=== PATIENT | female | born 1970 | race Caucasian/White ===

== ENCOUNTER → 2018-07-16 08:46 | Outpatient (CLI) | payer OTHER, SELFPAY ==
--- NOTE | 2018-07-16 | DI.MG.S_ITS ---
BILATERAL DIGITAL SCREENING MAMMOGRAM 3D/2D WITH CAD: 07/16/2018 CLINICAL: Routine screening. Comparison is made to exams dated: 01/19/2015 mammogram and 01/13/2015 mammogram - [facility]. The tissue of both breasts is heterogeneously dense. This may lower the sensitivity of mammography. Current study was also evaluated with a Computer Aided Detection (CAD) system. There are benign calcifications in the left breast. No significant masses, calcifications, or other findings are seen in either breast. IMPRESSION: There is no mammographic evidence of malignancy. A 1 year screening mammogram is recommended.(07/17/2019) This exam was interpreted at Station ID: [id number]. NOTE: For mammograms, a report in lay terms will be sent to the patient. Approximately 15% of breast malignancies will not be visualized mammographically. In the management of a palpable breast mass, a negative mammogram must not discourage biopsy of a clinically suspicious lesion. Electronically Signed By: Jasbir augustine/cata:07/16/2018 23:53:47 copy to: CINDY FISCHER letter sent: Normal Exam ACR BI-RADS Category 2: Benign Finding(s) 3342F
== END ==
PROVIDERS: Family Provider Specialist; PCP Family Medicine; Visit Provider Family Medicine
DX: Z12.31 Encounter for screening mammogram for malignant neoplasm of breast (principal)
CPT/HCPCS: 77063; 77067

== ENCOUNTER → 2019-07-25 08:40 | Outpatient (CLI) | payer OTHER, SELFPAY ==
--- NOTE | 2019-07-25 | DI.MG.S_ITS ---
BILATERAL DIGITAL SCREENING MAMMOGRAM 3D/2D WITH CAD: 07/25/2019 CLINICAL: Routine screening. Comparison is made to exams dated: 07/16/2018 mammogram, 01/19/2015 mammogram, and 01/13/2015 mammogram - [facility]. There are scattered fibroglandular elements in both breasts. Current study was also evaluated with a Computer Aided Detection (CAD) system. There are a benign mass and calcification in the right breast. There also are benign calcifications in the left breast. No significant masses, calcifications, or other findings are seen in either breast. There has been no significant interval change. IMPRESSION: There is no mammographic evidence of malignancy. A 1 year screening mammogram is recommended. This exam was interpreted at Station ID: [id number]. NOTE: For mammograms, a report in lay terms will be sent to the patient. Approximately 15% of breast malignancies will not be visualized mammographically. In the management of a palpable breast mass, a negative mammogram must not discourage biopsy of a clinically suspicious lesion. Electronically Signed By: Aung pérez/cata:07/27/2019 07:54:34 copy to: CINDY FISCHER letter sent: Normal Exam ACR BI-RADS Category 2: Benign Finding(s) 3342F
== END ==
PROVIDERS: Visit Provider Specialist
DX: Z12.31 Encounter for screening mammogram for malignant neoplasm of breast (principal)
CPT/HCPCS: 77063; 77067

== ENCOUNTER → 2020-01-13 14:44 | Outpatient (CLI) | payer OTHER, SELFPAY ==
--- NOTE | 2020-01-13 14:46 | DI.US.S_ITS ---
LIMITED ULTRASOUND OF RIGHT BREAST: 01/13/2020 CLINICAL: Palpable right breast lump. Comparison is made to exams dated: 07/25/2019 mammogram, 07/16/2018 mammogram, and 01/19/2015 mammogram - [facility]. Color flow and real-time ultrasound of the right breast 5 o'clock region were performed on the areas of interest. There is a 0.9 cm x 0.9 cm x 1 cm round cyst in the right breast at 5 o'clock middle depth. This round cyst is hypoechoic with a well-defined boundary, internal echoes, and posterior acoustic enhancement. This correlates as palpated. Color flow imaging demonstrates that there is no vascularity present. There also is a 0.7 cm x 0.5 cm x 0.7 cm oval mass with a circumscribed margin in the right breast at 5 o'clock middle depth. This oval mass is isoechoic with a well-defined boundary. This correlates as palpated and with mammography findings. Color flow imaging demonstrates that there is no vascularity present. IMPRESSION: PROBABLY BENIGN The 0.9 cm x 0.9 cm x 1 cm round cyst in the right breast at 5 o'clock middle depth is consistent with a complicated cyst and is probably benign. A follow-up ultrasound in 6 months is recommended. The 0.7 cm x 0.5 cm x 0.7 cm oval mass in the right breast at 5 o'clock middle depth likely represents fat necrosis and is probably benign. A follow-up ultrasound in 6 months is recommended. A follow-up ultrasound in 6 months is recommended to demonstrate stability. This exam was interpreted at Station ID: [id number]. Electronically Signed By: Mack lugo/cata:01/13/2020 16:58:46 copy to: CINDY FISCHER letter sent: Followup Recommended Ultrasound BI-RADS: 3 Probably benign
--- NOTE | 2020-01-13 14:46 | DI.MG.S_ITS ---
UNILATERAL RIGHT DIGITAL DIAGNOSTIC MAMMOGRAM 3D/2D: 01/13/2020 CLINICAL: Right breast lump. Comparison is made to exams dated: 07/25/2019 mammogram, 07/16/2018 mammogram, and 01/19/2015 mammogram - [facility]. There are scattered fibroglandular elements in right breast. There is a 1.1 cm round fat containing fat necrosis with an indistinct margin and punctate calcifications in the right breast at 3 o'clock posterior depth. This is not significantly changed and correlates as palpated. There is a post-surgical scar associated with the fat necrosis. No other significant masses or calcifications are seen in the breast. IMPRESSION: INCOMPLETE: NEEDS ADDITIONAL IMAGING EVALUATION The 1.1 cm round fat containing fat necrosis in the right breast is indeterminate. An ultrasound is recommended. This exam was interpreted at Station ID: [id number]. NOTE: For mammograms, a report in lay terms will be sent to the patient. Approximately 15% of breast malignancies will not be visualized mammographically. In the management of a palpable breast mass, a negative mammogram must not discourage biopsy of a clinically suspicious lesion. Electronically Signed By: Mack lugo/cata:01/13/2020 15:53:19 copy to: CINDY FISCHER ACR BI-RADS Category 0: Incomplete 3340F
== END ==
PROVIDERS: PCP Family Medicine; Referring Provider Specialist; Visit Provider Specialist
DX: R92.8 Other abnormal and inconclusive findings on diagnostic imaging of breast (principal); N60.01 Solitary cyst of right breast; N63.14 Unspecified lump in the right breast, lower inner quadrant; N64.1 Fat necrosis of breast
CPT/HCPCS: 76642; 77065; G0279

== ENCOUNTER → 2020-07-18 13:05 | Outpatient (CLI) | payer OTHER, SELFPAY ==
--- NOTE | 2020-07-18 13:06 | DI.US.S_ITS ---
LIMITED ULTRASOUND OF RIGHT BREAST: 07/18/2020 CLINICAL: Patient returns for a 6 month follow up of the right breast. No prior exams were available for comparison. Ultrasound of the right breast 4-5 o'clock region was performed on the area of interest. There is a stable benign area of fat necrosis in the right breast at 5 o'clock. IMPRESSION: BENIGN Fat necrosis in the right breast is benign. There is no sonographic evidence of malignancy. Return to annual mammogram screening schedule is recommended. Please note, the patient is due for a diagnostic ultrasound of a palpable area in the left breast and will be scheduled as soon as possible. This exam was interpreted at Station ID: [id number]. Electronically Signed By: Oksana gonzalez/:07/18/2020 14:52:46 copy to: CINDY FISCHER letter sent: Normal Exam Ultrasound BI-RADS: 2 Benign
--- NOTE | 2020-07-18 13:06 | DI.MG.S_ITS ---
BILATERAL DIGITAL DIAGNOSTIC MAMMOGRAM 3D/2D SHORT-TERM FOLLOW-UP: 07/18/2020 CLINICAL: Patient returns for a 6 month follow up of the right breast, due for bilateral exam. Comparison is made to exams dated: 01/13/2020 mammogram, 07/25/2019 mammogram, and 07/16/2018 mammogram - [facility]. There are scattered fibroglandular elements in both breasts. There are grouped calcifications in the left breast at 6 o'clock middle depth. This correlates as palpated and likely represents fat necrosis. Fat necrosis in the right breat is stable. No other significant masses or calcifications are seen in either breast. IMPRESSION: INCOMPLETE: NEEDS ADDITIONAL IMAGING EVALUATION The grouped calcifications in the left breast at 6 o'clock middle depth most likely represent fat necrosis and are indeterminate. An ultrasound is recommended. An untrasound of the right breat to follow up the previously seen complicated cyst and probable fat necrosis is recommneded and will be performed following this exam. This exam was interpreted at Station ID: [id number]. NOTE: For mammograms, a report in lay terms will be sent to the patient. Approximately 15% of breast malignancies will not be visualized mammographically. In the management of a palpable breast mass, a negative mammogram must not discourage biopsy of a clinically suspicious lesion. Electronically Signed By: Oksana Bernardo M.D. lk/:07/20/2020 08:03:58 Entry: - 07/20/2020 08:03:58 copy to: CINDY FISCHER letter sent: Need Ultrasound ACR BI-RADS Category 0: Incomplete 3340F
== END ==
PROVIDERS: PCP Family Medicine; Referring Provider Specialist; Visit Provider Specialist
DX: R92.8 Other abnormal and inconclusive findings on diagnostic imaging of breast (principal); R92.1 Mammographic calcification found on diagnostic imaging of breast; N64.1 Fat necrosis of breast
CPT/HCPCS: 76642; 77066; G0279

== ENCOUNTER → 2020-07-25 10:47 | Outpatient (CLI) | payer OTHER, SELFPAY ==
--- NOTE | 2020-07-25 10:51 | DI.US.S_ITS ---
LIMITED ULTRASOUND OF LEFT BREAST: 07/25/2020 CLINICAL: Palpable left breast lump and tender to the touch. Comparison is made to exams dated: 07/18/2020 ultrasound, 07/18/2020 mammogram, 01/13/2020 ultrasound, and 07/25/2019 mammogram - [facility]. Color flow and real-time ultrasound of the left breast 6-8 o'clock region were performed. Jeffery scale images of the real-time examination were reviewed. There is a 1.3 cm x 1.2 cm x 0.4 cm oval mass oriented parallel to the chest wall in the left breast at 7 o'clock anterior depth. This oval mass is hypoechoic with likely fatty hilum. This correlates as palpated, with mammography findings, and area of clinical concern. Color flow imaging demonstrates that there is an adjacent vascularity. IMPRESSION: PROBABLY BENIGN The 1.3 cm x 1.2 cm x 0.4 cm oval mass in the left breast has a differential diagnosis of a lymph node versus evolving fat necrosis and is probably benign. A follow-up left mammogram and an ultrasound in 6 months is recommended to demonstrate stability. Findings and recommendations were conveyed to the patient during today's evaluation. This exam was interpreted at Station ID: [id number]. Electronically Signed By: Aung Juarez M.D. aty/:07/25/2020 13:54:54 letter sent: Followup Recommended Ultrasound BI-RADS: 3 Probably benign
== END ==
PROVIDERS: PCP Family Medicine; Referring Provider Specialist; Visit Provider Specialist
DX: R92.8 Other abnormal and inconclusive findings on diagnostic imaging of breast (principal); N63.24 Unspecified lump in the left breast, lower inner quadrant
CPT/HCPCS: 76642

== ENCOUNTER → 2021-01-31 11:45 | Outpatient (CLI) | payer OTHER, SELFPAY ==
--- NOTE | 2021-01-31 11:47 | DI.MG.S_ITS ---
UNILATERAL LEFT DIGITAL DIAGNOSTIC MAMMOGRAM 3D/2D: 01/31/2021 CLINICAL: Short follow up. Comparison is made to exams dated: 07/18/2020 mammogram, 01/13/2020 mammogram, 07/25/2019 mammogram, 07/16/2018 mammogram, 07/25/2020 ultrasound, and 07/18/2020 ultrasound - [facility]. There are scattered fibroglandular elements in left breast. There are dystrophic calcifications in the left breast at 7 o'clock middle depth. These are slightly increased in number of calcifications and correlates as previously palpated abnormality. No other significant masses or calcifications are seen in the breast. IMPRESSION: INCOMPLETE: NEEDS ADDITIONAL IMAGING EVALUATION The dystrophic calcifications in the left breast are most consistent with fat necrosis. A targeted ultrasound is recommended and will immediately follow. This exam was interpreted at Station ID: [id number]. NOTE: For mammograms, a report in lay terms will be sent to the patient. Approximately 15% of breast malignancies will not be visualized mammographically. In the management of a palpable breast mass, a negative mammogram must not discourage biopsy of a clinically suspicious lesion. Electronically Signed By: Finesse Bolaños M.D. slc/:01/31/2021 12:28:56 ACR BI-RADS Category 0: Incomplete 3340F
--- NOTE | 2021-01-31 11:47 | DI.US.S_ITS ---
LIMITED ULTRASOUND OF LEFT BREAST: 01/31/2021 CLINICAL: 6 month follow-up of palpable mass. Comparison is made to exams dated: 01/31/2021 mammogram, 07/25/2020 ultrasound, 07/18/2020 mammogram, 07/25/2019 mammogram, and 07/16/2018 mammogram - [facility]. Color flow and real-time ultrasound of the left breast 6-7 o'clock region were performed. Jeffery scale images of the real-time examination were reviewed. The previously seen mass in the left breast 7:00 anterior depth is no longer seen. The dystrophic calcifications in the area of fat necrosis seen on mammogram is not identified on ultrasound. IMPRESSION: NEGATIVE There is no sonographic evidence of malignancy. A 1 year screening mammogram is recommended. Exam findings were conveyed to the patient. Patient is advised to monitor for significant change. This exam was interpreted at Station ID: [id number]. Electronically Signed By: Finesse Bolaños M.D. slc/:01/31/2021 14:20:24 letter sent: Normal Exam Ultrasound BI-RADS: 1 Negative
== END ==
PROVIDERS: PCP Family Medicine; Referring Provider Specialist; Visit Provider Specialist
DX: R92.8 Other abnormal and inconclusive findings on diagnostic imaging of breast (principal); R92.1 Mammographic calcification found on diagnostic imaging of breast; N63.24 Unspecified lump in the left breast, lower inner quadrant
CPT/HCPCS: 76642; 77065; G0279

== ENCOUNTER → 2024-04-22 10:49 | Outpatient (CLI) | payer OTHER, SELFPAY ==
--- NOTE | 2024-04-22 10:51 | DI.MG.S_ITS ---
BILATERAL DIGITAL SCREENING MAMMOGRAM 3D/2D WITH CAD: 04/22/2024 CLINICAL: Routine screening. Comparison is made to exams dated: 07/18/2020 mammogram, 07/25/2019 mammogram, and 07/16/2018 mammogram - [facility]. There are scattered areas of fibroglandular density in both breasts (category b / 25%-50% glandular tissue). Current study was also evaluated with a Computer Aided Detection (CAD) system. There are benign calcifications in both breasts. No significant masses, calcifications, or other findings are seen in either breast. There has been no significant interval change. IMPRESSION: BENIGN There is no mammographic evidence of malignancy. A 1 year screening mammogram is recommended. Based on the Tyrer Cuzick model (a risk assessment model) the patient's lifetime risk is 8.2% and her 10 year risk is 2.5%. According to the ACR, ACS, and NCCN guidelines, an annual breast MRI exam along with mammogram is recommended if the patient's lifetime risk is 20% or greater. This exam was interpreted at Station ID: [id number]. NOTE: For mammograms, a report in lay terms will be sent to the patient. Approximately 15% of breast malignancies will not be visualized mammographically. In the management of a palpable breast mass, a negative mammogram must not discourage biopsy of a clinically suspicious lesion. Electronically Signed By: Jenny duque/cata:04/22/2024 13:51:17 letter sent: Normal Exam ACR BI-RADS Category 2: Benign Finding(s) 3342F
== END ==
LOC: MAMMO 10:50
PROVIDERS: PCP Family Medicine; Referring Provider Family Medicine; Visit Provider Family Medicine
DX: Z12.31 Encounter for screening mammogram for malignant neoplasm of breast (principal); R92.323 Mammographic fibroglandular density, bilateral breasts
CPT/HCPCS: 77063; 77067

== ENCOUNTER → 2025-05-12 10:57 | Outpatient (CLI) | payer OTHER, SELFPAY ==
[2025-05-12 19:23] LABS: Add Manual Diff / Slide Review NO; Hematocrit 40.6 % (36-46); Hemoglobin 14.2 g/dL (12.0-16.0); Lymphocytes Absolute Auto 2000 /uL (1100-4500); Mean Corpuscular HGB Conc 34.8 % (30-36); Mean Corpuscular Hemoglobin 31.8 PG (26-34); Mean Corpuscular Volume 91.2 fL (80-100); Platelet Count 228 X10^3/uL (150-400)
[2025-05-12 19:32] LABS: Blood Urea Nitrogen 13 mg/dL (7-17); Calcium 11.5 mg/dL (8.4-10.2); Carbon Dioxide 25 mmol/L (22-32); Chloride 96 mmol/L (98-107); Cholesterol 219 mg/dL (140-199); Estimated Glomerular Filt Rate > 60 mL/min (>60); Glucose 81 mg/dL (70-99); HDL Cholesterol 102 mg/dL (40-60); Sodium 129 mmol/L (137-145); Triglycerides 53 mg/dL (35-150)
[2025-05-12 19:40] LABS: HEMOLYSIS 56 (0-50)
[2025-05-12 19:45] LABS: Potassium 4.4 mmol/L (3.4-5.1)
== END ==
PROVIDERS: PCP Family Medicine; Visit Provider Family Medicine
DX: I10 Essential (primary) hypertension (principal); F51.04 Psychophysiologic insomnia; Z13.6 Encounter for screening for cardiovascular disorders
CPT/HCPCS: 80048; 80061; 85025

== ENCOUNTER → 2025-05-12 13:50 | Outpatient (CLI) | payer OTHER, SELFPAY ==
--- NOTE | 2025-05-12 13:51 | DI.MG.S_ITS ---
MM screening mammo BI: 05/12/2025. BI-RADS: 2 CLINICAL: 55-year old female for bilateral screening mammogram. Tyrer-Cuzick lifetime risk of 7.3%. No personal or first-degree family history of breast cancer. The patient is status-post reduction mammoplasty. PRIOR EXAMS 04/22/2024, 01/31/2021, 07/18/2020, 01/13/2020, 07/25/2019, 07/16/2018. MAMMOGRAPHY TECHNIQUE: 2D and 3D (tomosynthesis) digital mammographic views obtained, with additional images as needed for full coverage. Current study was also evaluated with a Computer Aided Detection (CAD) system. DENSITY B. There are scattered areas of fibroglandular density. MAMMOGRAPHY FINDINGS Bilateral: Benign-appearing calcifications noted. There are no suspicious masses, calcifications, or other findings in the breast. No significant change from comparison. IMPRESSION: * No evidence of malignancy with benign findings. RECOMMENDATIONS Bilateral * Annual screening mammography. OVERALL ASSESSMENT CATEGORY BI-RADS-2: Benign. The [employer] recommends annual screening mammography beginning at age 40 for women with average risk of breast cancer. ELECTRONICALLY SIGNED: Adriana Mckeon M.D. on 05/12/2025 at 11:52:09 PM PT Interpreting Station ID: [id number]
== END ==
LOC: MAMMO 13:50
PROVIDERS: PCP Family Medicine; Referring Provider Family Medicine; Visit Provider Family Medicine
DX: Z12.31 Encounter for screening mammogram for malignant neoplasm of breast (principal)
CPT/HCPCS: 77063; 77067; 80048; 80061; 85025